=== PATIENT | male | born 1960 | race Caucasian/White ===

== ENCOUNTER 2020-11-17 18:58 | Emergency (ER) | payer OTHER ==
[~2020-11-17] VITALS: Ht 172.7 cm; Wt 83.9 kg
[2020-11-17 19:08] VITALS: BP 121/77
--- NOTE | 2020-11-17 19:16 | NUR ---
AMBULATED WITH GUARDED GAIT TO BED 11
[2020-11-17] MEDS ORDERED: KETOROLAC 60 MG/2 ML VIAL IM ONE (19:25)
--- NOTE | 2020-11-17 19:28 | NUR ---
PT BIB SELF FOR C/O PAIN TO RIGHT FOOT THAT RADIATES UP RIGHT LEG WHEN WALKING. PT STATES THIS HAS BEEN GOING ON FOR 3 MONTHS. DESCRIBED "TINGLING." PT DENIES DIABETES. PT DENIES SEEING PCP FOR CURRENT COMPLAINT. DENIED OTC MEDICATION FOR PAIN. PT IS AMBULATORY. DENIES INJURY. SKIN IS WARM, DRY AND PINK. CMS INTACT. NO NOTED SWELLING, BRUISING OR DISCOLORATION. CAP REFILL <3 SECONDS. PEDAL PULSES STRONG BILATERALLY. SEE COMPLETE ASSESSMENT FOR FURTHER DETAILS. MED HX: HTN ALLERGIES: NKA
--- NOTE | 2020-11-17 20:00 | NUR ---
ERMD AT BEDSIDE.
[2020-11-17] MEDS ORDERED: IBUP-2213 PO (20:07)
[2020-11-17] MEDS ORDERED: ACET-8386 PO (20:07)
[2020-11-17 20:20] VITALS: BP 121/77
--- NOTE | 2020-11-17 20:20 | NUR ---
Patient discharged with v/s stable. Written and verbal after care instructions given and explained. Patient alert, oriented and verbalized understanding of instructions. Ambulatory with steady gait. All questions addressed prior to discharge. ID band removed. Patient advised to follow up with PMD. Rx of IBUPROFEN AND NORCO given. Patient educated on indication of medication including possible reaction and side effects. Opportunity to ask questions provided and answered.
== END 2020-11-17 20:20 | disposition home or self-care (01) ==
LOC: MED 18:58
DX: M25.571 Pain in right ankle and joints of right foot (principal); I10 Essential (primary) hypertension; X58.XXXA Exposure to other specified factors, initial encounter; Y93.89 Activity, other specified; Y92.89 Other specified places as the place of occurrence of the external cause; Y99.8 Other external cause status
CPT/HCPCS: 96372; 99283; J1885